=== PATIENT | male | born 1970 | race Caucasian/White ===

== ENCOUNTER 2023-11-09 10:34 | Outpatient (AMB) | payer OTHER, SELFPAY ==
--- NOTE | 2023-11-09 10:46 | MHC.OFFWIV ---
Intake Vital Signs 11/09/23 10:53 Height 6 ft 1 in Weight 279 lb 4 oz BMI 36.8 BP 124/86 Blood Pressure Location Lt brachial Position Sitting Respiration 16 Pulse 54 Pulse Source Pulse Oximeter Temp 98.4 F Temp Source Oral Pulse Oximetry (%) 98 Oxygen Delivery Method Room Air Intake Visit Reasons: Shortness of breath Intake Note: Shortness of breath. Chest congestion. Sxs started over a week ago Patient Tobacco Use Status: Never used Tobacco Allergies No Known Allergies Allergy (Verified 11/09/23 11:15) Medication List - Last Reconciled 11/09/23 by Pily Charles, [facility]- albuterol sulfate 90 mcg/actuation 2 puffs inhalation Q4H PRN Do you need a note to return to daycare/school/sports/work: No HPI HPI Comments History of Present Illness Details 53-year-old male with asthma here today for complaints of shortness of breath. Reports that he was in his normal state of health until 1 week ago when he developed shortness of breath associated with a cough that is worse at night. He reports a history of asthma and has albuterol at home. Has been using without success. Also had prednisone on hand, was taking this also without any effect. He denies any fever, chills, chest pain, recent travel, surgery, prolonged immobility, heart conditions. Reports that he is active with primary care. He does not take any medications at home other than the albuterol. Exam Awake alert oriented, no acute distress Mucous membranes moist Irregularly irregular rhythm Lung sounds clear to auscultation bilat Plan EKG done in the office today which showed afib w rvr, rate 101 bpm; advised need to seek care in ED immediately. Wishes to go home first and take private vechicle. Aware of risks up to and including on delayed or refused treatment. Does not really want to go this ruins my whole day however is agreeable to go via private transport. linden harrington called at [phone], warm hand off given to Cami. This note is constructed using voice recognition software. While every effort has been made to ensure accuracy in medical biller coder, still errors may have been included Sometimes, these errors may affect the content or meaning of the given sentence . Total time spent caring for the patient today was 40 minutes. This includes time spent before the visit reviewing the chart, time spent during the visit, and time spent after the visit on documentation PFS Social History Patient Tobacco Use Status: Never used Tobacco Physical Exam Vital Signs: Last Vital Signs Temp 98.4 F 11/09/23 10:53 Pulse 54 11/09/23 10:53 Resp 16 11/09/23 10:53 BP 124/86 11/09/23 10:53 Pulse Ox 98 11/09/23 10:53 Oxygen Delivery Method Room Air 11/09/23 10:53 BMI result Body Mass Index 36.8 Office Procedures EKG Details: Afib with RVR [id number], Complete Assessment & Plan Assessment & Plan (1) SOB (shortness of breath): Code(s): R06.02 - Shortness of breath (2) Atrial fibrillation with RVR: Code(s): I48.91 - Unspecified atrial fibrillation Plan: . Plan . Orders: Orders AMB EKG-In Office Today Z13.6 - Encounter for screening for cardiovascular disorders Coding Level of Care Code Est Pt Level 5 (08403) Diagnoses SOB (shortness of breath) R06.02 Atrial fibrillation with RVR I48.91 CPT Codes EKG - CPT: 89729-Ujwuwnttjlotneiaa, Complete ([id number])
[2023-11-09 10:53] VITALS: BP 124/86; PULSE 54; RESP 16; TEMP 36.9; O2SAT 98; BMI 36.8
== END 2023-11-09 11:52 | disposition home or self-care (01) ==
PROVIDERS: PCP Internal Medicine; Visit Provider Nurse Practitioner Family
DX: R06.02 Shortness of breath (principal); I48.91 Unspecified atrial fibrillation
CPT/HCPCS: 93000; 99215